=== PATIENT | male | born 1945 | race Caucasian/White ===

== ENCOUNTER 2024-06-06 13:44 | Inpatient (IN) ==
[2024-06-06 14:16] LABS: Basophils # (auto) 0.05 K/uL (0.00-0.20); Basophils % (auto) 0.8 %; Eosinophils # (auto) 0.16 K/uL (0.00-0.50); Eosinophils % (auto) 2.4 %; Hematocrit (blood only) 38.5 % (42.0-52.0); Hemoglobin 13.5 g/dl (14.0-18.0); Immature Granulocytes # (auto) 0.03 K/uL (0.01-0.20); Immature Granulocytes % (auto) 0.5 %; Lymphocytes # (auto) 2.23 K/uL (1.20-3.40); Lymphocytes % (auto) 33.7 %; Mean Corpuscular Hemoglobin 33.8 pg (25.0-34.0); Mean Corpuscular Hgb Conc 35.1 g/dL (32.0-36.0); Mean Corpuscular Volume 96.3 fL (80.0-100.0); Mean Platelet Volume 10.7 fL (9.4-12.4); Monocytes # (auto) 0.68 K/uL (0.11-0.59); Monocytes % (auto) 10.3 %; Neutrophils # (auto) 3.47 K/uL (1.40-6.50); Neutrophils % (auto) 52.3 %; Platelet Count 255 K/uL (130-400); RDW Coefficient of Variation 11.9 % (11.5-14.5); RDW Standard Deviation 41.3 fL (36.4-46.3); White Blood Count 6.62 K/ul (4.8-10.8)
--- NOTE | 2024-06-06 14:27 | XRay Report ---
XR chest 1V portable CLINICAL HISTORY: Chest pain, nonspecific COMPARISON STUDY: Chest radiograph February 21, 2024. FINDINGS: Lung volumes are normal. Lungs are clear. There is no pneumothorax or pleural effusion. Car diac size is normal. Mediastinal contours are normal. There is no evidence for pulmonary edema. IMPRESSION: No acute cardiopulmonary findings. ACT 112: Negative or not required by law. Electronically signed by: Ludin Clement M.D. 06/06/2024 2:26 PM
[2024-06-06 14:32] LABS: Albumin Globulin Ratio 1.6 (0.9-2); Albumin Level 4.9 gm/dl (3.4-5.0); BUN Creatinine Ratio 12.6 (10-20); Bilirubin,Total 0.8 mg/dl (0.2-1.0); Calcium 9.5 mg/dl (8.6-10.3); Creatinine Clr Calc Pharmacy 60.1 ml/min; Potassium 3.7 mmol/L (3.5-5.1); Total Protein 7.9 gm/dl (6.0-8.3)
[2024-06-06 14:37] LABS: Troponin I High Sensitivity 9.5 pg/ml (0-20)
[2024-06-06 14:40] LABS: INR 0.9 (0.9-1.1); Partial Thromboplastin Ratio 0.8; Partial Thromboplastin Time 22 Seconds (21-31); Prothrombin Time 10.3 Seconds (9.0-12.0)
--- NOTE | 2024-06-06 15:23 | History & Physical Report ---
Date of Service June 06, 2024 Assessment & Plan (1) Unstable angina: Plan: Crecendo anginal equivalent pain (bilateral shoulder) with outpatient abnormal stress test. Report pending on admission Sent to ER for cardiac catheterization tomorrow. Start aspirin 81mg PO daily Beta-blockers and IV heparin deferred to cardiology Will hold HCTZ to allow up titration or above Continue simvastatin - defer switching to high intensity statin to cardiology NPO after midnight Consult cardiology (2) Valvular heart disease: Plan: Mild-moderate aortic stenosis, mild mitral regurgitation KARAN RUSB / (3) Shoulder pain, bilateral: Plan Gout - continue Febuxostat HTN - Continue enalapril or hospital formulary equivalent, hold HCTZ Easy bruising - secondary to moving furniture recently likely skin fragile from steroid cream use, monitor for worsening with anti-platelets VTE Prophylaxis - Lovenox 40mg SQ daily Diet - heart healthy, NPO after midnight Disposition - observation to PCU (2 midnight stay) Admission and Anticipated Discharge Date Admission Date: June 06, 2024 History of Present Illness Chief Complaint: Bilateral shoulder pain Abnormal outpatient stress test Primary Care Provider: Melva Rocha MD Joaquin Aburto is a 79 year old male who presents to the ER from his stress echocardiogram on the advice of his vocational education teacher due to abnormal findings. He reports 6 months of progressively worsening bilateral shoulder pain on exertion than is relieved with rest. No radiation. No associated chest pain, shortness of breath, diaphoresis or nausea. No claudication, presyncope, weight gain or leg swelling. No pain at rest but now coming on with minimal exertion just walking down the vides. Allergies Allergy/AdvReac Type Severity Reaction Status Date / Time adhesive AdvReac Severe Rips skin Unverified 06/06/24 15:44 off adhesive tape AdvReac Severe Rips skin Unverified 06/06/24 15:44 off Home Medications Medication Instructions Recorded Confirmed Type ascorbic acid (vitamin C) 500 mg 500 mg PO QPM 08/20/20 06/06/24 History tablet (Vitamin C) cholecalciferol (vitamin D3) 50 50 mcg PO QAM 08/20/20 06/06/24 History mcg (2,000 unit) capsule (Vitamin D3) multivitamin 1 tab PO QAM 08/20/20 06/06/24 History triamcinolone acetonide 0.1 % 1 applic topical DAILY PRN itching 02/14/22 06/06/24 Rx topical cream (Triderm) #80 grams lansoprazole 30 mg capsule,delayed 30 mg PO QAM #90 caps 03/03/24 06/06/24 Rx release simvastatin 40 mg tablet 40 mg PO QPM #90 tabs 03/03/24 06/06/24 Rx enalapril maleate 20 mg tablet 20 mg PO BID 05/23/24 06/06/24 History febuxostat 40 mg tablet 40 mg PO QAM 06/06/24 06/06/24 History hydrochlorothiazide 25 mg tablet 25 mg PO QAM 06/06/24 06/06/24 History Past Med/Surg History Problem List (Updated 06/06/24 @ 15:58 by Kostas Parkinson MD) Unstable angina Valvular heart disease Murmur Shoulder pain, bilateral Anemia Hyperglycemia Gout Easy bruising Abnormal PSA Health care maintenance Hypertension Hyperlipidemia Medical History Dry cough Blood in stool History of squamous cell carcinoma History of basal cell carcinoma GERD (gastroesophageal reflux disease) Mass of left upper extremity Mass of joint of left shoulder Surgical History H/O excision of mass (08/28/20) History of colonoscopy History of squamous cell carcinoma excision History of basal cell carcinoma (BCC) excision History of hernia repair S/P rotator cuff surgery Family History Brother Prostate cancer Mother Hypertension Other No family history of adverse response to anesthesia Denies family history of Ovarian cancer Myocardial infarction Breast cancer Colorectal cancer Social History Smoking Status: Former smoker Second Hand Exposure: No; Do You Dip or Chew Tobacco: No; Hx Alcohol Use: Yes (2 shots daily) Alcohol type: wine and hard liquor Alcohol Intake Frequency: 4 or More x per/Week Hx Substance Use: No Preferred Language: Azeri Communication Ability: Effective Visual Impairment: Partially Limited Hearing Ability: Normal 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 Beliefs That Will Affect Care: None marital status: Current Living Situation: Spouse current occupational status: retired How many Children do You have: 2 How many Children do You have Comment: 1 son 1 daughter () Feels Safe at Home: Yes Childhood Exposure to Second-Hand Smoke: No Diet: regular during the past year weight has: remained stable Dental Care, Regularly: Yes Physical Activity Frequency: Daily Physical Activity Frequency Comment: walking Seatbelt Use: always Sunscreen Use: Yes Assistive Devices: Glasses Review of Systems Review of Systems: All systems reviewed & are unremarkable except as noted in HPI & below Bruises easily and moving furniture this week so has multiple areas of bruising where there has been pressure from furniture - this is a longstanding issue Physical Exam Constitutional: WD/WN, vitals as above Eyes: + anicteric sclerae; normal pupil size Cardiovascular: Rate/Rhythm: regular rate and regular rhythm Heart Sounds: + murmur (KARAN 2/6 RUSB) Vessels: no JVD Extremities: normal capillary refill (trace b/l equal) and + pedal edema (trace); no calf tenderness Gastrointestinal (Abdomen): normal bowel sounds, soft, nontender, no hepatosplenomegaly Skin: + purpura Neurologic: moves all extremities and awake; no focal motor deficits and not confused Psychiatric: A+Ox3, euthymic affect Results & Data Results & Data Vital Signs (Past 12 Hours) Vital Signs Temp Pulse Resp BP Pulse Ox O2 Del Method O2 Flow Rate 06/06/24 15:08 97 Room Air 0 06/06/24 15:00 146/86 H 06/06/24 14:51 80 13 92 06/06/24 14:33 74 12 94 06/06/24 14:30 160/85 H 06/06/24 14:27 75 11 L 97 06/06/24 14:06 96 H 19 96 06/06/24 14:00 176/93 H 06/06/24 14:00 97 Room Air 06/06/24 13:59 95 H 06/06/24 13:55 185/98 H 06/06/24 13:44 36.6 C 100 H 18 174/86 H 95 Room Air Laboratory Results Abnormal lab results 06/06/24 Range/Units 14:01 RBC 4.00 L (4.70-6.10) M/uL Hgb 13.5 L (14.0-18.0) g/dl Hct 38.5 L (42.0-52.0) % [place] # (Auto) 0.68 H (0.11-0.59) K/uL Anion Gap 12 H (3-11) Glucose 110 H (70-99(Fasting)) mg/dl Diagnostic Findings XR chest 1V portable CLINICAL HISTORY: Chest pain, nonspecific COMPARISON STUDY: Chest radiograph February 21, 2024. FINDINGS: Lung volumes are normal. Lungs are clear. There is no pneumothorax or pleural effusion. Cardiac size is normal. Mediastinal contours are normal. There is no evidence for pulmonary edema. IMPRESSION: No acute cardiopulmonary findings. Medications Administered ER Medications Given: None ECG Rate (beats per minute): 92 Rhythm: normal sinus Findings: no acute ischemic change Comparison ECG Date: from (May 23, 2024) Change: no significant change Code Status & VTE Plan Code Status Full VTE Prophylaxis Plan VTE Prophylaxis will be ordered: Yes PG Care Time/CCT Total # of Minutes Spent Total Time Spent with Patient: Total time spent is greater than 50% in coordination of care (as documented) at patient's floor/unit and/or counseling patient: Coding Level of Care Code 00312 INT INP/OBS CARE 2/55MIN Diagnoses Unstable angina I20.0 Valvular heart disease I38 Shoulder pain, bilateral M25.511; M25.512
[2024-06-06] MEDS: ASPIRIN 81 MG ECTAB PO STA (16:14)
--- NOTE | 2024-06-06 16:21 | Emergency Department Note ---
Impression & Plan Chronic stable angina, Abnormal cardiovascular stress test ED Provider Note NAME: SHAYY ALCARAZ AGE: 79 SEX: M : 1945 ARRIVES VIA: Walk-In INFORMANT: Patient, ED PROVIDER(S): Ashley Dumont MD CHIEF COMPLAINT: Abnormal stress test HPI: This is a 79-year-old male presenting for abnormal stress test. Patient states that he has had chest pain for past 6 months. He has had progressive worsening where whenever he walks he begins having chest pain. This has worsened to the point where he is having chest pain quicker with walking. Now is having pain walking only a few feet. He notes no shortness of breath with this. He notes that the pain is in his bilateral shoulders. He went to his manager building, Dr. Sanford, who did a stress since it is abnormal, "possibly maker ". ROS: See above HPI for pertinent positives & negatives. A total of 10 systems reviewed and were otherwise negative. PAST MEDICAL HISTORY: See Below PAST SURGICAL HISTORY: See Below FAMILY HISTORY: See Below SOCIAL HISTORY: See Below HOME MEDICATIONS: See Below ALLERGIES: See Below VITALS: See Below PHYSICAL EXAMINATION: General: resting comfortably in no acute distress Head: Normocephalic and atraumatic Eyes: Normal inspection, extraocular muscles intact Ear, nose, throat: Normal external exam Neck: Normal range of motion Respiratory: lungs clear to auscultation bilaterally Cardiovascular: Regular rate/rhythm, no murmur GI: soft, nontender, no guarding or rebound Extremities: nontender, moves all extremities Neuro: The patient awake and alert, appropriately conversive, no focal deficits, symmetric faces Skin: Warm, dry, and intact MEDICAL DECISION MAKING: This is a 79-year-old male presenting for abnormal stress test. Will get patient admitted for his failed stress test and what appears to be stable angina. -Bloodwork is reviewed showing no significant leukocytosis, anemia, electrolyte or creatinine abnormality -Currently negative troponin -Patient mated to hospitalist service at this time Differential diagnosis: Stable angina, stable angina, ACS ER treatment provided: See below Diagnostics interpreted by me: ECG: ECG independently interpreted by me with normal sinus rhythm, rate of 62, normal axis, normal FL, normal QRS, normal QTc, no ST segment elevations consistent with STEMI criteria Cardiac Monitoring: An order was placed for continuous cardiac monitoring. The monitor shows a rate of 69 with sinus rhythm. Laboratory studies: As stated above and show below. Imaging studies: See below. Past Med/Surg History Problem List (Updated 06/07/24 @ 17:34 by Dominga Randle MD) Aortic stenosis CAD (coronary artery disease), [place] coronary artery Unstable angina Valvular heart disease Murmur Shoulder pain, bilateral Anemia Hyperglycemia Gout Easy bruising Abnormal PSA Health care maintenance Hypertension Hyperlipidemia Medical History Dry cough Blood in stool History of squamous cell carcinoma History of basal cell carcinoma GERD (gastroesophageal reflux disease) Mass of left upper extremity Mass of joint of left shoulder Surgical History H/O excision of mass (08/28/20) History of colonoscopy History of squamous cell carcinoma excision History of basal cell carcinoma (BCC) excision History of hernia repair S/P rotator cuff surgery Family History Brother Prostate cancer Mother Hypertension Other No family history of adverse response to anesthesia Denies family history of Ovarian cancer Myocardial infarction Breast cancer Colorectal cancer Social History Smoking Status: Never smoker Second Hand Exposure: No; Do You Dip or Chew Tobacco: No; Hx Alcohol Use: Yes Alcohol type: beer and hard liquor Alcohol Intake Frequency: 4 or More x per/Week Hx Substance Use: No Preferred Language: Colombian Communication Ability: Effective Visual Impairment: Partially Limited Hearing Ability: Normal 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 Beliefs That Will Affect Care: None marital status: Current Living Situation: Spouse Current Living Situation Comment: Independent Living at [place] current occupational status: retired How many Children do You have: 2 How many Children do You have Comment: 1 son 1 daughter () Other Information That Helps Us Care for You: No Feels Safe at Home: Yes Safety Concerns: Feels Safe At This Time Childhood Exposure to Second-Hand Smoke: No Diet: regular during the past year weight has: remained stable Dental Care, Regularly: Yes Physical Activity Frequency: Daily Physical Activity Frequency Comment: walking Seatbelt Use: always Sunscreen Use: Yes Assistive Devices: None Allergies Allergies Allergy/AdvReac Type Severity Reaction Status Date / Time adhesive AdvReac Severe Rips skin Unverified 06/06/24 15:44 off adhesive tape AdvReac Severe Rips skin Unverified 06/06/24 15:44 off Home Meds Home Medications Medication Instructions Recorded Confirmed ascorbic acid (vitamin C) 500 mg 500 mg PO QPM 08/20/20 06/06/24 tablet (Vitamin C) cholecalciferol (vitamin D3) 50 50 mcg PO QAM 08/20/20 06/06/24 mcg (2,000 unit) capsule (Vitamin D3) multivitamin 1 tab PO QAM 08/20/20 06/06/24 enalapril maleate 20 mg tablet 20 mg PO BID 05/23/24 06/06/24 febuxostat 40 mg tablet 40 mg PO QAM 06/06/24 06/06/24 hydrochlorothiazide 25 mg tablet 25 mg PO QAM 06/06/24 06/06/24 Previous Rx's Medication Instructions Recorded triamcinolone acetonide 0.1 % 1 applic topical DAILY PRN itching 02/14/22 topical cream (Triderm) #80 grams lansoprazole 30 mg capsule,delayed 30 mg PO QAM #90 caps 03/03/24 release simvastatin 40 mg tablet 40 mg PO QPM #90 tabs 03/03/24 Results & Data (ED) Vital Signs Vital Signs - 24 hr 06/06/24 13:44 06/06/24 13:55 06/06/24 13:59 Temperature 36.6 C Temperature Source Oral Pulse Rate 100 H 95 H Pulse Rate from SpO2 Sensor Respiratory Rate 18 Blood Pressure 174/86 H 185/98 H Blood Pressure Mean 115 142 Pulse Oximetry 95 Oxygen Delivery Method Room Air Oxygen Flow Rate Sepsis Recent Fever Within 48 Hours No Sepsis New/Unexplained Change in Mental Status N/A Sepsis Action Taken by Nursing No Action Required 06/06/24 14:00 06/06/24 14:00 06/06/24 14:06 Temperature Temperature Source Pulse Rate 96 H Pulse Rate from SpO2 Sensor 94 H Respiratory Rate 19 Blood Pressure 176/93 H Blood Pressure Mean 118 Pulse Oximetry 97 96 Oxygen Delivery Method Room Air Oxygen Flow Rate Sepsis Recent Fever Within 48 Hours Sepsis New/Unexplained Change in Mental Status Sepsis Action Taken by Nursing 06/06/24 14:27 06/06/24 14:30 06/06/24 14:33 Temperature Temperature Source Pulse Rate 75 74 Pulse Rate from SpO2 Sensor 74 76 Respiratory Rate 11 L 12 Blood Pressure 160/85 H Blood Pressure Mean 111 Pulse Oximetry 97 94 Oxygen Delivery Method Oxygen Flow Rate Sepsis Recent Fever Within 48 Hours Sepsis New/Unexplained Change in Mental Status Sepsis Action Taken by Nursing 06/06/24 14:51 06/06/24 15:00 06/06/24 15:08 Temperature Temperature Source Pulse Rate 80 Pulse Rate from SpO2 Sensor 81 Respiratory Rate 13 Blood Pressure 146/86 H Blood Pressure Mean 101 Pulse Oximetry 92 97 Oxygen Delivery Method Room Air Oxygen Flow Rate 0 Sepsis Recent Fever Within 48 Hours Sepsis New/Unexplained Change in Mental Status Sepsis Action Taken by Nursing Laboratory Data 06/06/24 14:01 06/06/24 14:01 Lab Results 06/06/24 Range/Units 14:01 WBC 6.62 (4.8-10.8) K/ul RBC 4.00 L (4.70-6.10) M/uL Hgb 13.5 L (14.0-18.0) g/dl Hct 38.5 L (42.0-52.0) % MCV 96.3 (80.0-100.0) fL MCH 33.8 (25.0-34.0) pg MCHC 35.1 (32.0-36.0) g/dL RDW Std Deviation 41.3 (36.4-46.3) fL RDW Coeff of John 11.9 (11.5-14.5) % Plt Count 255 (130-400) K/uL MPV 10.7 (9.4-12.4) fL Immature Gran % (Auto) 0.5 % Neut % (Auto) 52.3 % Lymph % (Auto) 33.7 % [place] % (Auto) 10.3 % Eos % (Auto) 2.4 % Baso % (Auto) 0.8 % Neut # (Auto) 3.47 (1.40-6.50) K/uL Lymph # (Auto) 2.23 (1.20-3.40) K/uL [place] # (Auto) 0.68 H (0.11-0.59) K/uL Eos # (Auto) 0.16 (0.00-0.50) K/uL Baso # (Auto) 0.05 (0.00-0.20) K/uL Immature Gran # (Auto) 0.03 (0.01-0.20) K/uL PT 10.3 (9.0-12.0) Seconds INR 0.9 (0.9-1.1) APTT 22 (21-31) Seconds PTT Ratio 0.8 Sodium 137 (136-145) mmol/L Potassium 3.7 (3.5-5.1) mmol/L Chloride 100 (98-107) mmol/L Carbon Dioxide 25 (21-32) mmol/L Anion Gap 12 H (3-11) BUN 13 (6-23) mg/dl Creatinine 1.03 (0.6-1.4) mg/dl Est Cr Clr Drug Dosing 60.1 ml/min eGFR 74.82 BUN/Creatinine Ratio 12.6 (10-20) Glucose 110 H (70-99(Fasting)) mg/dl Calcium 9.5 (8.6-10.3) mg/dl Magnesium 2.0 (1.7-2.4) mg/dl Total Bilirubin 0.8 (0.2-1.0) mg/dl AST 27 (13-39) U/L ALT 26 (7-52) U/L Alkaline Phosphatase 66 (34-104) U/L Troponin I High Sens 9.5 (0-20) pg/ml Total Protein 7.9 (6.0-8.3) gm/dl Albumin 4.9 (3.4-5.0) gm/dl Globulin 3.0 (2.5-4.0) gm/dl Albumin/Globulin Ratio 1.6 (0.9-2) Lipase 24 (11-82) U/L Administered Medications Ascorbic Acid (Ascorbic Acid 500 Mg Tab) 500 mg PO QPM [facility] Stop: 07/06/24 20:59 Last Admin: 06/06/24 20:24 Dose: 500 mg Documented By: MPC Aspirin (Aspirin 81 Mg Ectab) 81 mg PO QAM SANDRA Stop: 07/07/24 08:59 Last Admin: 06/07/24 08:29 Dose: 81 mg Documented By: DAKSHA Enalapril Maleate (Enalapril Maleate 10 Mg Tab) 20 mg PO BID SANDRA Stop: 07/06/24 20:59 Last Admin: 06/07/24 08:30 Dose: 20 mg Documented By: Admin: 06/06/24 20:24 Dose: 20 mg Documented By: BOB Miscellaneous (Febuxostat 40mg: Order Awaiting Action) 1 each N/A QS [facility] Stop: 07/07/24 00:00 Last Admin: 06/07/24 14:34 Dose: Not Given Documented By: Admin: 06/07/24 08:26 Dose: Not Given Documented By: Admin: 06/06/24 23:09 Dose: Not Given Documented By: BOB Multivitamins (Multivitamin Tab) 1 tab PO [facility] Stop: 07/07/24 08:59 Last Admin: 06/07/24 08:27 Dose: Not Given Documented By: DAKSHA Pantoprazole Sodium (Pantoprazole 40 Mg Tab) 40 mg PO [facility] Stop: 07/07/24 08:59 Last Admin: 06/07/24 08:30 Dose: 40 mg Documented By: DAKSHA Vitamin D (Cholecalciferol 25 Mcg (1000 Units) Tab) 50 mcg PO [facility] Stop: 07/07/24 08:59 Last Admin: 06/07/24 08:27 Dose: Not Given Documented By: DAKSHA Discontinued Medications Aspirin (Aspirin 81 Mg Ectab) 81 mg PO NOW [facility] Stop: 06/06/24 15:53 Last Admin: 06/06/24 16:14 Dose: 81 mg Documented By: TORSTEN Enoxaparin Sodium (Enoxaparin Inj 40 Mg/0.4 Ml Syr) 40 mg SQ QPM [facility] Stop: 07/06/24 20:59 Last Admin: 06/06/24 20:25 Dose: 40 mg Documented By: BOB Fentanyl Citrate (Fentanyl Citrate Pf 100 Mcg/2 Ml Vial) Confirm Administered Dose 100 mcg .ROUTE .STK-MED ONE Stop: 06/07/24 10:57 Last Admin: 06/07/24 12:09 Dose: 100 mcg Documented By: TONIA Heparin Sodium (Porcine) (Heparin (Porcine) 1000 Unit/Ml 10 Ml (Route Cdl Driver Use Only)) Confirm Administered Dose 10,000 units .ROUTE .STK-MED ONE Stop: 06/07/24 10:56 Last Admin: 06/07/24 12:08 Dose: 10,000 units Documented By: TONIA Heparin Sodium (Porcine) (Heparin (Porcine) 1000 Unit/Ml 10 Ml (Route Cdl Driver Use Only)) Confirm Administered Dose 10,000 units .ROUTE .STK-MED ONE Stop: 06/07/24 12:09 Last Admin: 06/07/24 12:10 Dose: 2,000 units Documented By: TONIA Heparin Sodium/Sodium Chloride (Heparin In Nss Infusion 1000 Unit/500 Ml (2 U/Ml) Bag) Confirm Administered Dose 3,000 units IV .STK-MED ONE Stop: 06/07/24 10:57 Last Admin: 06/07/24 11:06 Dose: 3,000 units Documented By: TIFFANY Ioversol (Optiray 350) Confirm Administered Dose 1 ml .ROUTE .STK-MED ONE Stop: 06/07/24 10:59 Last Admin: 06/07/24 12:09 Dose: 160 ml Documented By: TIFFANY Midazolam HCl (Midazolam Hcl 1 Mg/Ml 2ml Vial) Confirm Administered Dose 2 mg .ROUTE .STK-MED ONE Stop: 06/07/24 10:56 Last Admin: 06/07/24 11:34 Dose: 2 mg Documented By: TONIA Midazolam HCl (Midazolam Hcl 1 Mg/Ml 2ml Vial) Confirm Administered Dose 2 mg .ROUTE .STK-MED ONE Stop: 06/07/24 11:34 Last Increment: 06/07/24 12:10 Dose: 1 mg Documented By: TONIA Nicardipine HCl (Nicardipine Hcl Inj 2.5 Mg/Ml 10 Ml Amp) Confirm Administered Dose 25 mg .ROUTE .STK-MED ONE Stop: 06/07/24 10:57 Last Admin: 06/07/24 11:07 Dose: 25 mg Documented By: TIFFANY Nitroglycerin/Dextrose (Nitroglycerin/D5w 100mcg/Ml 20ml Syr) Confirm Administered Dose 2,000 mcg .ROUTE .STK-MED ONE Stop: 06/07/24 10:57 Last Admin: 06/07/24 11:07 Dose: 2,000 mcg Documented By: TIFFANY Simvastatin (Simvastatin 40 Mg Tab) 40 mg PO QPM [facility] Stop: 07/06/24 20:59 Last Admin: 06/06/24 20:24 Dose: 40 mg Documented By: BOB Ticagrelor (Ticagrelor 90 Mg Tab) Confirm Administered Dose 180 mg .ROUTE .STK- MED ONE Stop: 06/07/24 12:15 Last Admin: 06/07/24 12:22 Dose: 180 mg Documented By: KENNY Ticagrelor (Ticagrelor 90 Mg Tab) 90 mg PO BID SANDRA Stop: 07/07/24 00:00 Last Admin: 06/07/24 14:33 Dose: Not Given Documented By: Admin: 06/07/24 14:33 Dose: Not Given Documented By: DAKSHA Imaging Data Radiologist's Impression: Chest X-Ray 06/06/24 13:52 XR chest 1V portable CLINICAL HISTORY: Chest pain, nonspecific COMPARISON STUDY: Chest radiograph February 21, 2024. FINDINGS: Lung volumes are normal. Lungs are clear. There is no pneumothorax or pleural effusion. Cardiac size is normal. Mediastinal contours are normal. There is no evidence for pulmonary edema. IMPRESSION: No acute cardiopulmonary findings. ACT 112: Negative or not required by law. Electronically signed by: Ludin Clement M.D. 06/06/2024 2:26 PM Discharge Plan Visit Data Chief Complaint: Chest Pain Stated Complaint: ANGINA ED Provider: Ashley Dumont Discharge Problem: Chronic stable angina, Abnormal cardiovascular stress test Patient Disposition: Admitted As Inpatient Discharge Instructions Interventions: ED Discharge Assessment Last Done: 06/06/24 18:13
[2024-06-06] MEDS ORDERED: TRIAMCINOLONE ACET 0.1% CR 15 GM TUBE TOP PRN (18:46)
[2024-06-06] MEDS: ASCORBIC ACID 500 MG TAB PO SCH (20:24)
[2024-06-06] MEDS: SIMVASTATIN 40 MG TAB PO SCH (20:24)
[2024-06-06] MEDS: ENALAPRIL MALEATE 10 MG TAB PO SCH (20:24)
[2024-06-06] MEDS: ENOXAPARIN INJ 40 MG/0.4 ML SYR SQ SCH (20:25)
--- NOTE | 2024-06-07 05:41 | Electrocardiogram Report ---
Test Reason : Blood Pressure : */* mmHG Vent. Rate : 92 BPM Atrial Rate : 92 BPM P-R Int : 148 ms QRS Dur : 78 ms QT Int : 342 ms P-R-T Axes : 65 36 65 degrees QTcB Int : 422 ms Normal sinus rhythm Nonspecific ST abnormality When compared with ECG of 23-May-2024 10:21, No significant change was found Confirmed by Urbano Clark ([id number]) on 06/07/2024 5:41:01 AM Referred By: REFERRED SELF Confirmed By: Urbano Clark
[2024-06-07] MEDS: MULTIVITAMIN TAB PO SCH (08:27)
[2024-06-07] MEDS: CHOLECALCIFEROL 25 MCG (1000 UNITS) TAB PO SCH (08:27)
[2024-06-07] MEDS: ASPIRIN 81 MG ECTAB PO SCH (08:29)
[2024-06-07] MEDS: PANTOprazole 40 MG TAB PO SCH (08:30)
--- NOTE | 2024-06-07 10:58 | Cardiology Consultation ---
Date of Consultation June 07, 2024 Assessment & Plan (1) Unstable angina: Presentation consistent with accelerating angina. Now post high risk, abnormal stress test. Recommend proceeding with cardiac catheterization and possible PCI. No apparent contraindications to procedure. Discussed risks, benefits, alternatives of procedure with patient and they are willing to proceed. Further recommendations pending findings of coronary angiography. History of Present Illness Attending Physician: Dominga Randle MD History of Present Illness Mr. Aburto is a very pleasant 79-year-old man admitted with accelerating angina and high risk, abnormal stress test. Cardiac history remarkable for mild to moderate aortic stenosis on echo 03/2024, EF 55%. Cardiac risk factors include hypertension, dyslipidemia. Other medical issues include GERD, easy bruising, squamous/basal cell carcinoma postresection. Active at baseline. Previously able to walk 1 mile and 18 minutes. Decreased exercise tolerance over the last few months with exertional bilateral shoulder pain. Seen by Dr. Sanford 2 weeks ago. Exercise stress echo yesterday, exercised 6 minutes, achieving >100 % MPHR. Had reproduction of his exertional shoulder pain which persisted into recovery. ECG showed ST depression in inferior and lateral leads as well as hypokinesis involving anterior wall and apex. Referred to ED. Overnight has had no recurrent shoulder pain. Initial HS TropI negative. Social history: , [facility]. Lifelong non-smoker Allergies Allergy/AdvReac Type Severity Reaction Status Date / Time adhesive AdvReac Severe Rips skin Unverified 06/06/24 15:44 off adhesive tape AdvReac Severe Rips skin Unverified 06/06/24 15:44 off Home Medications Medication Instructions Recorded Confirmed Type ascorbic acid (vitamin C) 500 mg 500 mg PO QPM 08/20/20 06/06/24 History tablet (Vitamin C) cholecalciferol (vitamin D3) 50 50 mcg PO QAM 08/20/20 06/06/24 History mcg (2,000 unit) capsule (Vitamin D3) multivitamin 1 tab PO QAM 08/20/20 06/06/24 History triamcinolone acetonide 0.1 % 1 applic topical DAILY PRN itching 02/14/22 06/06/24 Rx topical cream (Triderm) #80 grams lansoprazole 30 mg capsule,delayed 30 mg PO QAM #90 caps 03/03/24 06/06/24 Rx release simvastatin 40 mg tablet 40 mg PO QPM #90 tabs 03/03/24 06/06/24 Rx enalapril maleate 20 mg tablet 20 mg PO BID 05/23/24 06/06/24 History febuxostat 40 mg tablet 40 mg PO QAM 06/06/24 06/06/24 History hydrochlorothiazide 25 mg tablet 25 mg PO QAM 06/06/24 06/06/24 History Patient History Medical History Dry cough Blood in stool History of squamous cell carcinoma History of basal cell carcinoma GERD (gastroesophageal reflux disease) Mass of left upper extremity Mass of joint of left shoulder Surgical History H/O excision of mass (08/28/20) History of colonoscopy History of squamous cell carcinoma excision History of basal cell carcinoma (BCC) excision History of hernia repair S/P rotator cuff surgery Family History Brother Prostate cancer Mother Hypertension Other No family history of adverse response to anesthesia Denies family history of Ovarian cancer Myocardial infarction Breast cancer Colorectal cancer Social History Smoking Status: Never smoker Second Hand Exposure: No; Do You Dip or Chew Tobacco: No; Hx Alcohol Use: Yes Alcohol type: beer and hard liquor Alcohol Intake Frequency: 4 or More x per/Week Hx Substance Use: No Preferred Language: Montenegrin Communication Ability: Effective Visual Impairment: Partially Limited Hearing Ability: Normal Yoke Setter Required: No Beliefs That Will Affect Care: None marital status: Current Living Situation: Spouse Current Living Situation Comment: Independent Living at [place] current occupational status: retired How many Children do You have: 2 How many Children do You have Comment: 1 son 1 daughter () Other Information That Helps Us Care for You: No Feels Safe at Home: Yes Safety Concerns: Feels Safe At This Time Childhood Exposure to Second-Hand Smoke: No Diet: regular during the past year weight has: remained stable Dental Care, Regularly: Yes Physical Activity Frequency: Daily Physical Activity Frequency Comment: walking Seatbelt Use: always Sunscreen Use: Yes Assistive Devices: Glasses Review of Systems Review of Systems: All systems reviewed & are unremarkable except as noted in HPI & below Physical Exam Physical Exam: General: Comfortable HEENT: Sclerae anicteric Lungs: Clear to auscultation bilaterally, no crackles or wheezes Cardiac: Regular rate and rhythm, 2 out of 6 systolic ejection murmur Vascular: 2+ radial, Abdomen: Soft, nontender Extremities: Well perfused, no peripheral edema. Diffuse ecchymosis Neuro: Nonfocal Psych: Alert orient x3, normal affect and mood Results & Data Vital Signs (Past 12 Hours) Vital Signs Temp Pulse Resp BP Pulse Ox O2 Del Method 06/07/24 08:19 97.7 F 69 18 151/84 H 96 Room Air 06/07/24 03:20 97.7 F 72 18 130/75 97 Room Air 06/06/24 23:10 97.7 F 81 20 142/87 H 97 Room Air PG Care Time/CCT Total # of Minutes Spent Total Time Spent with Patient: Total time spent is greater than 50% in coordination of care (as documented) at patient's floor/unit and/or counseling patient: Coding Level of Care Code 48135 INT INP/OBS CARE 2/55MIN Diagnoses Unstable angina I20.0
--- NOTE | 2024-06-07 10:58 | Pre Anesthesia Assessment ---
Date of Service June 07, 2024 Pre Sedation Assessment Vital Signs Temp Pulse Pulse Resp BP BP Pulse Ox 06/07/24 10:49 82 18 156/76 H 94 06/07/24 08:19 97.7 F 69 18 151/84 H 96 06/07/24 03:20 97.7 F 72 18 130/75 97 06/06/24 23:10 97.7 F 81 20 142/87 H 97 06/06/24 21:51 72 06/06/24 18:47 97.7 F 70 15 183/83 H 98 06/06/24 18:10 85 22 161/84 H 96 06/06/24 17:00 149/69 H 06/06/24 17:00 67 17 99 06/06/24 16:39 71 17 92 06/06/24 16:30 139/71 06/06/24 16:30 139/71 06/06/24 16:24 68 14 98 06/06/24 16:00 75 16 96 06/06/24 16:00 138/72 06/06/24 15:36 75 15 95 06/06/24 15:31 160/63 H 06/06/24 15:27 70 20 98 06/06/24 15:08 97 06/06/24 15:06 82 13 98 06/06/24 15:00 146/86 H 06/06/24 14:51 80 13 92 06/06/24 14:33 74 12 94 06/06/24 14:30 160/85 H 06/06/24 14:27 75 11 L 97 06/06/24 14:06 96 H 19 96 06/06/24 14:00 176/93 H 06/06/24 14:00 97 06/06/24 13:59 95 H 06/06/24 13:55 185/98 H 06/06/24 13:44 97.9 F 100 H 18 174/86 H 95 O2 Del Method O2 Flow Rate 06/07/24 10:49 Room Air 06/07/24 08:19 Room Air 06/07/24 03:20 Room Air 06/06/24 23:10 Room Air 06/06/24 21:51 06/06/24 18:47 Room Air 06/06/24 18:10 Room Air 06/06/24 17:00 06/06/24 17:00 Room Air 06/06/24 16:39 06/06/24 16:30 06/06/24 16:30 06/06/24 16:24 06/06/24 16:00 06/06/24 16:00 06/06/24 15:36 06/06/24 15:31 06/06/24 15:27 06/06/24 15:08 Room Air 0 06/06/24 15:06 06/06/24 15:00 06/06/24 14:51 06/06/24 14:33 06/06/24 14:30 06/06/24 14:27 06/06/24 14:06 06/06/24 14:00 06/06/24 14:00 Room Air 06/06/24 13:59 06/06/24 13:55 06/06/24 13:44 Room Air Cardiovascular + regular rate Respiratory + respiratory effort normal Pre-Sedation Airway Assessment Smoking Status: Never smoker Hx Sleep Apnea: No Hx Difficult Intubation: No Short, Thick Neck: No Thyromental Distance: > or= 3.5 Finger Breadths Oral Cavity: + WNL Mallampati Class: III ASA: ASA3 NPO Status Date of Last Intake of Fluids: 06/06/24 Time of Last Intake of Fluids: 07:00 Date of Last Intake of Solid Food: 06/06/24 Time of Last Intake of Solid Foods: 07:00 Procedure Planning Contraindications for Sedation: none Current Medications Reviewed: Yes Notes The planned sedation has been discussed with the patient. Informed Consent was obtained. I have identified the patient, determined the appropriateness of sedation and have assessed the patient immediately prior to the procedure. All medicine(s) and interventions are by my order.
[2024-06-07] MEDS: NITROGLYCERIN/D5W 100MCG/ML 20ML SYR ONE (11:07)
[2024-06-07] MEDS: niCARdipine HCL INJ 2.5 MG/ML 10 ML AMP ONE (11:07)
[2024-06-07] MEDS: MIDAZOLAM HCL 1 MG/ML 2ML VIAL ONE ×2 (11:34→12:10)
[2024-06-07] MEDS: HEPARIN (PORCINE) 1000 UNIT/ML 10 ML (CATH LAB USE ONLY) ONE ×2 (12:08→12:10)
[2024-06-07] MEDS: fentaNYL citrate PF 100 MCG/2 ML VIAL ONE (12:09)
[2024-06-07] MEDS: OPTIRAY 350 ONE (12:09)
[2024-06-07] MEDS: TICAGRELOR 90 MG TAB ONE (12:22)
--- NOTE | 2024-06-07 13:09 | Post Anesthesia Assessment ---
Date of Service June 07, 2024 Post Sedation Assessment Vital Signs Temp Pulse Pulse Resp BP BP BP 06/07/24 12:30 63 16 128/78 06/07/24 12:15 63 16 143/82 H 06/07/24 10:49 82 18 156/76 H 06/07/24 08:19 97.7 F 69 18 151/84 H 06/07/24 03:20 97.7 F 72 18 130/75 06/06/24 23:10 97.7 F 81 20 142/87 H 06/06/24 21:51 72 06/06/24 18:47 97.7 F 70 15 183/83 H 06/06/24 18:10 85 22 161/84 H 06/06/24 17:00 149/69 H 06/06/24 17:00 67 17 06/06/24 16:39 71 17 06/06/24 16:30 139/71 06/06/24 16:30 139/71 06/06/24 16:24 68 14 06/06/24 16:00 75 16 06/06/24 16:00 138/72 06/06/24 15:36 75 15 06/06/24 15:31 160/63 H 06/06/24 15:27 70 20 06/06/24 15:08 06/06/24 15:06 82 13 06/06/24 15:00 146/86 H 06/06/24 14:51 80 13 06/06/24 14:33 74 12 06/06/24 14:30 160/85 H 06/06/24 14:27 75 11 L 06/06/24 14:06 96 H 19 06/06/24 14:00 176/93 H 06/06/24 14:00 06/06/24 13:59 95 H 06/06/24 13:55 185/98 H 06/06/24 13:44 97.9 F 100 H 18 174/86 H Pulse Ox O2 Del Method O2 Flow Rate 06/07/24 12:30 99 Room Air 06/07/24 12:15 99 Room Air 06/07/24 10:49 94 Room Air 06/07/24 08:19 96 Room Air 06/07/24 03:20 97 Room Air 06/06/24 23:10 97 Room Air 06/06/24 21:51 06/06/24 18:47 98 Room Air 06/06/24 18:10 96 Room Air 06/06/24 17:00 06/06/24 17:00 99 Room Air 06/06/24 16:39 92 06/06/24 16:30 06/06/24 16:30 06/06/24 16:24 98 06/06/24 16:00 96 06/06/24 16:00 06/06/24 15:36 95 06/06/24 15:31 06/06/24 15:27 98 06/06/24 15:08 97 Room Air 0 06/06/24 15:06 98 06/06/24 15:00 06/06/24 14:51 92 06/06/24 14:33 94 06/06/24 14:30 06/06/24 14:27 97 06/06/24 14:06 96 06/06/24 14:00 06/06/24 14:00 97 Room Air 06/06/24 13:59 06/06/24 13:55 06/06/24 13:44 95 Room Air Recovery Score Activity: Moves 4 extremities Respiration: Deep Breath/Cough Circulation: +/-20% PreAnes Value Consciousness: Fully Awake Oxygen Saturation: > 92% On Room Air Post Anesthesia Score: 10 Discharge Sedation Level of Care: Fast Track Phase II Post Sedation Plan On clinical assessment, the patient appears to have tolerated the sedation without complications. Patient is recovering as anticipated. Patient will continue to be monitored by nursing and may be discharged when sedation discharge criteria are met per below protocol. Upon Completions of procedure up to 15 minutes continue every 5 minute vital signs and the P.A.R. score; then discharge to a Phase I or Fast Track to Phase II per the following guidelines: * Discharge Patient to appropriate Phase II area if PAR is 8 or greater or return to pre- procedure baseline. The post - procedure orders will be as directed. * If PAR score is less than 8 or not return to pre-procedure baseline then patient will follow Phase I monitoring till PAR is reached for Phase II. The Phase I may be done in procedure room or may call to secure a Phase I area. * If naloxone or flumazenil are used for reversal, hold in Phase I for continued monitoring from when last reversal dose was given for a minimum of 60 minutes or longer pending the nurse and/or physician discretion of patient condition before discharge to Phase II. Please call the Sedation Physician to re-evaluate and complete post-note for discharge to Phase II area. Do NOT discharge from procedure sedation or Phase 1 until post- sedation evaluation note is complete by procedure /sedation MD Sedation Discharge Instructions to be given to the patient at discharge to home.
--- NOTE | 2024-06-07 13:33 | Cardiac Catheterization ---
[facility] Data: Hris Coordinator Cardiac Status Clinical evaluation leading to the procedure CAD Presenation: Positive Stress Test Anginal Classification: CCS III Diagnostic Physicians Name: Gurdeep Jarvis MD Closure Device Recommendations: PCI without planned CABG Cardiac Cath Procedure Full Procedure Date June 07, 2024 Pre-Procedure Diagnosis Pre-Procedure Diagnosis: Positive Stress Test AUC Score AUC Score: 7 Post-Procedure Diagnosis Post-Procedure Diagnosis: Severe CAD, Successful PCI and Normal Intracardiac Pressures Procedure(s) Performed Procedure(s) Performed: Coronary Angiography, Left Heart Cath, Drug Eluting Stent and IVUS Wigs Salesperson Gurdeep Jarvis MD Phy Therapist(s) Saman Estimated Blood Loss Estimated Blood Loss: 20 Medication(s) Medication(s): Fentanyl, Heparin, Lidocaine 1%, Nicardipine, Nitroglycerin and Versed Medication(s): Ticagrelor Summary of Findings Indication: Accelerating angina, high risk stress test Access: 6Fr right radial artery Catheters: [place], EBU 3.5 guide Findings: LM -normal caliber, calcified, 30% distal stenosis LAD -calcified, medium caliber, 98% proximal LAD stenosis just before takeoff of medium caliber D2. Remainder of LAD small with luminal irregularities in the midsegment. Distal vessel tapers prior to apex. Medium high D1/ramus 40% proximal. Medium D2 30% ostial, 30% proximal, 30-40% mid Circumflex -medium caliber, calcified 6070 % ostial stenosis. Remainder of AV groove circumflex without significant disease. Medium OM 2 without disease. RCA -dominant, large caliber, calcified, mid segment luminal irregularities. L arge-caliber RPDA with 20-30% mid segment disease. Very faint right to left collaterals to LAD LVEDP - 8 -- PCI -- Antithrombotic therapy: Heparin, Ticagrelor Procedure: LM cannulated with EBU 3.5 guide Pre-procedure flow MONALISA 2-3 Resizer Operator 50 wire passed across lesion into distal vessel Proximal LAD lesion predilated with 2.5 compliant balloon [place] blue wire placed into medium caliber D2 [place] IVUS catheter placed into mid LAD. Pullback revealed calcified severe disease in early-mid and proximal LAD extending across take-off 2nd diagonal. Ostial LAD heavily calcified without significant obstruction. LMCA with eccentric calcified 30% distal disease. Dilated lesion stented with 2.5 x 18 mm Geo stent across take-off D2 Stent post-dilated with 3.0 noncompliant balloon Repeat IVUS showed well-expanded, well-apposed stent with no apparent edge complications. IC vasodilators administered for spasm Post procedure MONALISA 3 flow, stent well expanded with minimal residual stenosis and no apparent cardiac complications. Mild residual stenosis in ostial D2 but MONALISA 3 flow Arterial Closure: TR Band Summary: 1. Multivessel vessel coronary artery disease -98% proximal LAD stenosis just before takeoff of D2. High D1 40% proximal. D2 30-40% disease. 60-70% ostial circumflex 30% distal left main 2. Normal intracardiac filling pressure 3. Successful PCI of proximal LAD with single drug-eluting stent (2.5 x 18 mm Geo; postdilated with 3.0 NC) extending across takeoff of D2 Recommendations: To PCU for continued monitoring Loaded with ticagrelor 180 mg in Hris Coordinator Continue dual-antiplatelet therapy for at least 6 months Continue statin, and ASCVD risk factor modification Consult cardiac Rehab Hemodynamics Rest Ao:: 126/68/100 Final Ao: 107/60/80 LV: 126/8 Recommendations Recommendations: PCI without planned CABG Specimens Specimens: None Radiation Exposure (mGy) 2578 Contrast (mls) 160 Anesthesia Moderate 3417-6115 Procedural Complication(s) None I attest to the content of the Intraoperative Record and any orders documented therein. Any exceptions are noted below. [facility] Card Cath Procedure Codes Cardiac Catheterization Procedure 1: Cardiovascular Cath Procedures: 57576 Coronaries and LHC (+/-LV) Therapeutic Services & Ancillary Procedure 1: Cardiovascular Tx and Anc Procedures: 53034 IV Ultrasound (Coronary or Graft) Moderate Sedation Procedure 1: Sedation/Anesthesia: 89982 Mod Sedation by the same physician;Init15 Min Child Age 5 & Up Procedure 2: Sedation/Anesthesia: 41205 Mod Sedation by the same physician; Ea [id number] Minutes Stenting Procedure 1: Cardiovascular Stent Procedures: 73650 Perc transcatheter placement of intracoronary stent(s), with ang PG Care Time/CCT Total # of Minutes Spent Total Time Spent with Patient: Total time spent is greater than 50% in coordination of care (as documented) at patient's floor/unit and/or counseling patient:
[2024-06-07] MEDS: TICAGRELOR 90 MG TAB PO SCH (14:33)
--- NOTE | 2024-06-07 17:41 | Hospitalist Progress Note ---
Date of Service June 07, 2024 Assessment & Plan (1) Unstable angina: Plan: Presented with [place] anginal equivalent pain (bilateral shoulder) with outpatient abnormal stress test Admitted and had cardiac catheterization on 06/07 which showed: Multivessel vessel coronary artery disease-98% proximal LAD stenosis just before takeoff of D2. High D1 40% proximal. D2 30-40% disease.60-70% ostial circumflex 30% distal left main Normal intracardiac filling pressure Successful PCI of proximal LAD with single drug-eluting stent (2.5 x 18 mm [place]; postdilated with 3.0 NC) extending across takeoff of D2 Loaded with ticagrelor 180 mg in Customer Support Advisor Continue dual-antiplatelet therapy for at least 6 months-due to his significantly easy bleeding/bruising/purpura-cardiology plans to switch to Plavix and aspirin on 06/08 Continue statin-will change to atorvastatin and check lipid panel in the morning Consult cardiac Rehab Follow CBC, BMP in the morning (2) CAD (coronary artery disease), [place] coronary artery: Plan: As above (3) Aortic stenosis: Plan: Mild to moderate on recent echocardiogram, mild MR Follow-up as an outpatient ASCVD treatment as above (4) Hypertension: Plan: Continue enalapril Holding home HCTZ Blood pressure is controlled Plan Gout - continue Febuxostat Easy bruising - secondary to moving furniture recently likely skin fragile from steroid cream use, monitor for worsening with [id number] discontinue Lovenox VTE Prophylaxis -discontinue Lovenox 40mg SQ daily due to very fragile skin and bleeding now that is on dual antiplatelet therapy Disposition -continued stay in PCU, likely discharged home on 06/08 Admission and Anticipated Discharge Date Admission Date: June 06, 2024 Anticipated date of discharge: 06/08/24 Subjective Patient seen after return from cardiac catheterization and is feeling well. No further chest pain. He had a stent placed to the proximal LAD. Denies nausea. Telemetry with normal sinus rhythm with rates in the 60s Physical Exam Constitutional: WD/WN, vitals as above Respiratory: normal respiratory effort, lungs clear to auscultation Cardiovascular: Rate/Rhythm: regular rate and regular rhythm Heart Sounds: + murmur (2/6 KARAN RUSB) Extremities: no edema Gastrointestinal (Abdomen): normal bowel sounds, soft, nontender, no hepatosplenomegaly Skin: + lesion (Numerous large purpura all ove r arms and chest) Psychiatric: A+Ox3, euthymic affect Results & Data Results & Data Vital Signs (Past 12 Hours) Vital Signs Temp Pulse Pulse Resp BP BP BP 06/07/24 15:00 69 17 137/75 06/07/24 14:30 71 16 130/66 06/07/24 14:00 65 16 116/67 06/07/24 13:30 68 16 120/69 06/07/24 12:30 63 16 128/78 06/07/24 12:15 63 16 143/82 H 06/07/24 10:49 82 18 156/76 H 06/07/24 08:19 36.5 C 69 18 151/84 H Pulse Ox O2 Del Method 06/07/24 15:00 97 Room Air 06/07/24 14:30 97 Room Air 06/07/24 14:00 98 Room Air 06/07/24 13:30 97 Room Air 06/07/24 12:30 99 Room Air 06/07/24 12:15 99 Room Air 06/07/24 10:49 94 Room Air 06/07/24 08:19 96 Room Air PG Care Time/CCT Total # of Minutes Spent Total Time Spent with Patient: Total time spent is greater than 50% in coordination of care (as documented) at patient's floor/unit and/or counseling patient: Coding Level of Care Code 18942 SUB INP/OBS CARE 2/35MIN Diagnoses Unstable angina I20.0 CAD (coronary artery disease), [place] coronary artery I25.10 Aortic stenosis I35.0 Hypertension I10
[2024-06-08] MEDS: TICAGRELOR 90 MG TAB PO SCH (00:59)
[2024-06-08 06:21] LABS: Basophils # (auto) 0.04 K/uL (0.00-0.20); Basophils % (auto) 0.7 %; Eosinophils # (auto) 0.35 K/uL (0.00-0.50); Eosinophils % (auto) 6.4 %; Hematocrit (blood only) 33.8 % (42.0-52.0); Hemoglobin 11.8 g/dl (14.0-18.0); Immature Granulocytes # (auto) 0.02 K/uL (0.01-0.20); Immature Granulocytes % (auto) 0.4 %; Lymphocytes # (auto) 1.46 K/uL (1.20-3.40); Lymphocytes % (auto) 26.6 %; Mean Corpuscular Hemoglobin 34.6 pg (25.0-34.0); Mean Corpuscular Hgb Conc 34.9 g/dL (32.0-36.0); Mean Corpuscular Volume 99.1 fL (80.0-100.0); Monocytes % (auto) 10.9 %; Neutrophils # (auto) 3.01 K/uL (1.40-6.50); Platelet Count 212 K/uL (130-400); RDW Coefficient of Variation 11.9 % (11.5-14.5); RDW Standard Deviation 42.9 fL (36.4-46.3); Red Blood Count 3.41 M/uL (4.70-6.10); White Blood Count 5.48 K/ul (4.8-10.8)
[2024-06-08 07:00] VITALS: RESP 18
[2024-06-08 07:01] LABS: BUN Creatinine Ratio 12.8 (10-20); Calcium 8.9 mg/dl (8.6-10.3); Chol HDL Ratio 3.1 (0-5); Creatinine Clr Calc Pharmacy 56.8 ml/min; Potassium 4.3 mmol/L (3.5-5.1)
[2024-06-08] MEDS: ATORVASTATIN 40 MG TAB PO SCH (08:39)
[2024-06-08 12:03] VITALS: PULSE 77; TEMP 97.9; O2SAT 97
--- NOTE | 2024-06-08 12:24 | Cardiology Progress Note ---
Date of Service June 08, 2024 Assessment & Plan (1) CAD (coronary artery disease), [place] coronary artery: Plan: Post PCI with FITO to LAD Residual ostial LCx disease 2. Mild to moderate aortic stenosis 3. Hypertension 4. Anemia 5. Easy bruising/bleeding Chest pain-free overnight. Electrically stable No access site complications. Easy bruising, bleeding from skin tears. Hemoglobin down to 11.8. From a cardiac standpoint okay with discharge today. Will transition ticagrelor to clopidogrel. Give 300 mg loading dose today. Start 75 mg tomorrow. Continue DAPT with clopidogrel, aspirin for at least 6 months. Continue home antihypertensives Agree with transition to atorvastatin 40 Will arrange follow-up with cardiology in 2 weeks. Further discussion of cardiac rehab at that time and repeat hemoglobin. Admission and Anticipated Discharge Date Admission Date: June 07, 2024 Subjective Feeling well. No chest pain overnight. No other new concerns. Telemetry reviewedbrief PAT, no significant ventricular ectopy Review of Systems Review of Systems: All systems reviewed & are unremarkable except as noted in HPI & below Physical Exam Physical Exam: General: Comfortable HEENT: Sclerae anicteric Lungs: Few crackles at right base Cardiac: Regular rate and rhythm, no murmurs. Vascular: Right radial artery access site with no ecchymosis, hematoma. Distal pulse and sensation intact. Abdomen: Soft, nontender Extremities: Well perfused, no peripheral edema Neuro: Nonfocal Psych: Alert orient x3, normal affect and mood Results & Data Vital Signs (Past 12 Hours) Vital Signs Temp Pulse Pulse Resp BP Pulse Ox O2 Del Method 06/08/24 12:02 97.9 F 77 18 144/77 H 97 Room Air 06/08/24 11:34 76 06/08/24 06:57 97.5 F L 74 18 127/74 94 Room Air 06/08/24 03:13 97.9 F 06/08/24 03:11 97.2 F L 70 16 119/70 96 Room Air PG Care Time/CCT Total # of Minutes Spent Total Time Spent with Patient: Total time spent is greater than 50% in coordination of care (as documented) at patient's floor/unit and/or counseling patient: Coding Level of Care Code 43915 SUB INP/OBS CARE 2/35MIN Diagnoses CAD (coronary artery disease), [place] coronary artery I25.10
--- NOTE | 2024-06-08 13:01 | Discharge Summary ---
Discharge Summary Date of Service June 08, 2024 Principal Dx & Hospital Course #1 = Principal Diagnosis (1) Unstable angina: Presented with Crecendo anginal equivalent pain (bilateral shoulder) with outpatient abnormal stress test Admitted and had cardiac catheterization on 06/07 which showed: Multivessel vessel coronary artery disease-98% proximal LAD stenosis just before takeoff of D2. High D1 40% proximal. D2 30-40% disease.60-70% ostial circu mflex 30% distal left main Normal intracardiac filling pressure Successful PCI of proximal LAD with single drug-eluting stent (2.5 x 18 mm Geo; postdilated with 3.0 NC) extending across takeoff of D2 Loaded with ticagrelor 180 mg in [employer]ilingual [employer] and started on maintenance dose, however given significant easy bruising/bleeding--> switch to Plavix-loaded with 300mg on day of discharge and then continue 75mg daily Continue dual-antiplatelet therapy for at least 6 months-Plavix and aspirin Continue statin-changed to atorvastatin - lipid panel with TChol 140, LDL 49 Consult cardiac Rehab F/u with Cardiology as outpt (2) CAD (coronary artery disease), [place] coronary artery: As above (3) Aortic stenosis: Mild to moderate on recent echocardiogram, mild MR Follow-up as an outpatient ASCVD treatment as above (4) Hypertension: Continue enalapril can resume home HCTZ on discharge Blood pressure is controlled Plan Gout - continue Febuxostat Easy bruising - secondary to moving furniture recently likely skin fragile from steroid cream use, monitor for worsening with anti-platelets as outpt. Reports negative Heme workup in past for bleeding disorders VTE Prophylaxis - Lovenox 40mg SQ daily x 1 dose, dcd due to easy bleeding and on DAPT Disposition -dc to home Notes For Next Care Provider Needs cardiac rehab referral Medication Changes From Visit Added ASA, Plavix Changed simvastatin to atorvastatin 40mg daily Admission HPI Per Admitting Provider Joaquin Criselda is a 79 year old male who presents to the ER from his stress echocardiogram on the advice of his information technology director due to abnormal findings. He reports 6 months of progressively worsening bilateral shoulder pain on exertion than is relieved with rest. No radiation. No associated chest pain, shortness of breath, diaphoresis or nausea. No claudication, presyncope, weight gain or leg swelling. No pain at rest but now coming on with minimal exertion just walking down the vides. Discharge Exam Constitutional WD/WN, vitals as above Respiratory normal respiratory effort, lungs clear to auscultation Cardiovascular Rate/Rhythm: regular rate and regular rhythm Heart Sounds: + murmur (2/6 KARAN RUSB) Extremities: no edema Gastrointestinal (Abdomen) normal bowel sounds, soft, nontender, no hepatosplenomegaly Skin + lesion (Numerous large purpura all over arms and chest) Psychiatric A+Ox3, euthymic affect Discharge Plan Discharge Items Patient Disposition: Home - Self-Care Reason For Visit: UNSTABLE ANGINA Discharge Diagnosis: Coronary artery disease Stent to LAD Unstable angina Condition on Discharge: Good Activity: As commented below Driving/Machine Use: Resume 3 days after discharge Non-emergency contact: Primary Care Provider and Unclaimed Property Officer Call non-emergency contact if: you have any medication questions and your symptoms worsen Follow-up/Referrals: Arnold Sanford MD, PhD [Physician] - (Follow up within 1-2 weeks) Melva Rocha MD [Primary Care Provider] - 06/20/24 3:00 pm (Hospital follow up scheduled June 20 at 3:00) Diet: Heart Healthy Addtl Attending Provider Instructions: ACTIVITY RECOMMENDATIONS: Excess manipulation of the wrist should be avoided for the next 24-48 hours. * No lifting over 2 pounds (approximately a 1/2 gallon of milk) with the utilized arm for 24 hours. * No strenuous activity such as bowling or tennis for 3 days. * Keep the site of the procedure covered with a bandage for 24 hours. *You may shower the day after the procedure. Do not take a tub bath or submerge the puncture site in water for the next 3 days. *Do not operate any motorized equipment for 3 days. SPECIAL CARE INSTRUCTIONS: The site may be slightly bruised and sore following your procedure. Should any of the following occur, contact the Dr. who performed your procedure. 1. Redness/inflammation, swelling, chills, or fever, or colored drainage at procedure site within 3-7 days after your procedure. 2. Coldness, discoloration, ongoing numbness, severe pain, or swelling. Expect mild tingling of hand and tenderness at the puncture site for up to three days. If this persists beyond three days, or other symptoms develop, notify the Dr. who performed your procedure. BLEEDING: If the procedure site on your wrist begins to bleed, do not panic 1. Place 1 or 2 fingers firmly just slightly above the insertion site to stop the bleeding. You may be able to feel your pulse as you hold pressure. 2. Lift your finger after 5 minutes to see if the bleeding has stopped. 3. Once the bleeding has stopped, gently wipe the wrist area clean with a bandage. * If the bleeding from your wrist does not stop after 10 minutes, or if there is a large amount of bleeding or spurting, call 911 (do not drive yourself to the hospital). SKIN IRRITATION: * You may experience some redness and/or swelling in the area where radiation was administered. If any skin irritation occurs, please contact your family physician. FOLLOW UP VISIT: Keep any scheduled doctor appointments. Home Care: * Take your medications exactly as directed. Don't skip doses. * Remember that recovery after a heart attack takes time. Plan to rest for at lease 4-8 weeks while you recover. Then return to normal activity when your doctor says it's okay. * Ask your doctor about joining a heart rehabilitation program. * Tell your doctor if you are feeling depressed. Feelings of sadness are common after a heart attack, but it is important that you speak to someone if you are feeling overwhelmed by these feelings. * If you are having chest pain, call 911 for an ambulance. Do NOT drive yourself to the hospital. * Ask your family members to learn CPR. * Learn to take your own blood pressure and pulse. Keep a record of your results. Ask your doctor when you should seek emergency medical attention. He or she will tell you which blood pressure reading is dangerous. Lifestyle Changes: * Maintain a healthy weight. Get help to lose any extra pounds. * Cut back on salt. * Limit canned, dried, packaged, and fast foods. * Don't add salt to your food. * Season foods with herbs instead of salt when you cook. * Break the smoking habit. Enroll in a stop-smoking program to improve your chances of success. * Limit fatty foods. * Ask your doctor about having your lipid levels checked regularly. * Build up your activity according to your doctor's recommendation. * Ask your doctor when it's okay to resume sexual activity. * Tell your doctor about any erectile dysfunction (ED) medication you are taking. Some ED medications are not safe if you take certain heart medications. * Try to manage stress. Follow Up: It is important for you to keep your follow up appointments with your medical provider. Pending Studies at Discharge: No Stand-Alone Forms: My [facility], Smoking Cessation Medications and DC Order Prescriptions: New atorvastatin 40 mg Tablet 40 mg PO QAM Qty: 30 0RF clopidogrel 75 mg Tablet 75 mg PO QAM Qty: 30 0RF aspirin 81 mg Tablet,Delayed Release (Dr/Ec) 81 mg PO QAM Qty: 30 0RF Continued lansoprazole 30 mg capsule,delayed release(DR/EC) 30 mg PO QAM Qty: 90 3RF triamcinolone acetonide [Triderm] 0.1 % cream 1 applic topical DAILY PRN (Reason: itching) Qty: 80 0RF enalapril maleate 20 mg tablet 20 mg PO BID multivitamin Tablet 1 tab PO QAM ascorbic acid (vitamin C) [Vitamin C] 500 mg Tablet 500 mg PO QPM cholecalciferol (vitamin D3) [Vitamin D3] 50 mcg (2,000 unit) Capsule 50 mcg PO QAM hydrochlorothiazide 25 mg tablet 25 mg PO QAM febuxostat 40 mg tablet 40 mg PO QAM Discontinued simvastatin 40 mg tablet 40 mg PO QPM Qty: 90 3RF Discharge Orders: Discharge Order (Routine); Ordered 06/08/24 Ordered By: Dominga Randle Admission Data Admit Date/Time: 06/07/24 17:28 Attending Provider: Dominga Randle Admit Provider: Kostas Parkinson Primary Care Provider: Melva Rocha V. Other Providers: Urbano Clark; Kostas Parkinson Hospital Stay Data Consultations 06/06/24 15:50 Consult Cardiology Routine 06/06/24 16:10 ED Decision to Admit Stat Procedures Performed Operation Date: 06/07/24 11:00 Actual Procedures p Cineradiography w/Routine Exam - Gurdeep Jarvis MD p Cath, Left with Cors and Vent - Gurdeep Jarvis MD s IVUS Coronary Single Vessel - Gurdeep Jarvis MD s Drug Eluting Stent SGl Vessel - Gurdeep Jarvis MD Diagnostic Imagining Performed 06/07/24 08:42 CL Cath Imgs for PACS use only Routine 06/07/24 12:34 CL IVUS Coronary Single Vessel Routine Pending Results Patient Have Any Pending Studies at Discharge: No Discharge Instructions Given to Patient (Per Discharging Provider) ACTIVITY RECOMMENDATIONS: Excess manipulation of the wrist should be avoided for the next 24-48 hours. * No lifting over 2 pounds (approximately a 1/2 gallon of milk) with the utilized arm for 24 hours. * No strenuous activity such as bowling or tennis for 3 days. * Keep the site of the procedure covered with a bandage for 24 hours. *You may shower the day after the procedure. Do not take a tub bath or submerge the puncture site in water for the next 3 days. *Do not operate any motorized equipment for 3 days. SPECIAL CARE INSTRUCTIONS: The site may be slightly bruised and sore following your procedure. Should any of the following occur, contact the Dr. who performed your procedure. 1. Redness/inflammation, swelling, chills, or fever, or colored drainage at procedure site within 3-7 days after your procedure. 2. Coldness, discoloration, ongoing numbness, severe pain, or swelling. Expect mild tingling of hand and tenderness at the puncture site for up to three days. If this persists beyond three days, or other symptoms develop, notify the Dr. who performed your procedure. BLEEDING: If the procedure site on your wrist begins to bleed, do not panic 1. Place 1 or 2 fingers firmly just slightly above the insertion site to stop the bleeding. You may be able to feel your pulse as you hold pressure. 2. Lift your finger after 5 minutes to see if the bleeding has stopped. 3. Once the bleeding has stopped, gently wipe the wrist area clean with a bandage. * If the bleeding from your wrist does not stop after 10 minutes, or if there is a large amount of bleeding or spurting, call 911 (do not drive yourself to the hospital). SKIN IRRITATION: * You may experience some redness and/or swelling in the area where radiation was administered. If any skin irritation occurs, please contact your family physician. FOLLOW UP VISIT: Keep any scheduled doctor appointments. Home Care: * Take your medications exactly as directed. Don't skip doses. * Remember that recovery after a heart attack takes time. Plan to rest for at lease 4-8 weeks while you recover. Then return to normal activity when your doctor says it's okay. * Ask your doctor about joining a heart rehabilitation program. * Tell your doctor if you are feeling depressed. Feelings of sadness are common after a heart attack, but it is important that you speak to someone if you are feeling overwhelmed by these feelings. * If you are having chest pain, call 911 for an ambulance. Do NOT drive yourself to the hospital. * Ask your family members to learn CPR. * Learn to take your own blood pressure and pulse. Keep a record of your results. Ask your doctor when you should seek emergency medical attention. He or she will tell you which blood pressure reading is dangerous. Lifestyle Changes: * Maintain a healthy weight. Get help to lose any extra pounds. * Cut back on salt. * Limit canned, dried, packaged, and fast foods. * Don't add salt to your food. * Season foods with herbs instead of salt when you cook. * Break the smoking habit. Enroll in a stop-smoking program to improve your chances of success. * Limit fatty foods. * Ask your doctor about having your lipid levels checked regularly. * Build up your activity according to your doctor's recommendation. * Ask your doctor when it's okay to resume sexual activity. * Tell your doctor about any erectile dysfunction (ED) medication you are taking. Some ED medications are not safe if you take certain heart medications. * Try to manage stress. Follow Up: It is important for you to keep your follow up appointments with your medical provider. Total Time Total Time Spent Total Time Spent (In Minutes): 35 min Total Time Includes: Examination of the Patient, Discharge Planning, Medication Reconciliation, Communication With Other Providers (Cardiology) and Other Coding Level of Care Code 81966 INP/OBS DISCH >30 MIN Diagnoses Unstable angina I20.0 CAD (coronary artery disease), [place] coronary artery I25.10 Aortic stenosis I35.0 Hypertension I10
[2024-06-08] MEDS: CLOPIDOGREL BISULFATE 300 MG TAB PO ONE (13:46)
[2024-06-08 14:09] VITALS: BP 151/84
[2024-06-09] MEDS ORDERED: CLOPIDOGREL BISULFATE 75 MG TAB PO SCH (09:00)
== END 2024-06-08 14:36 | disposition home or self-care (01) | DRG 322 ==
LOC: 2E 13:44 → ED 13:44 → SUATTDRO 15:31 → 2E 18:13